=== PATIENT | male | born 1950 | race Caucasian/White ===

== ENCOUNTER 2016-05-08 15:58 | Inpatient (IN) | payer MEDICARE, BC ==
[~2016-05-08] VITALS: Ht 180.3 cm; Wt 85.5 kg
[2016-06-28] VITALS (10 sets, daily range): BP systolic 119–143; BP diastolic 57–78; PULSE 64–641; TEMP 97.1–98.3
[2016-06-28] MEDS ORDERED: VITAMIN C500 MG PO (10:44)
[2016-06-28] MEDS ORDERED: FOLIC ACID 40400 MCG PO (10:44)
[2016-06-28] MEDS ORDERED: FERROUS SU325 MG/TAB PO (10:45)
[2016-06-28] MEDS ORDERED: MOBIC15 MG PO (10:45)
[2016-06-29 00:07] VITALS: BP 128/62; PULSE 83; TEMP 98.2
[2016-06-29 05:03] VITALS: BP 122/79; PULSE 83; TEMP 97.8
[2016-06-29] MEDS ORDERED: ASPI325T6 PO (06:10)
[2016-06-29] MEDS ORDERED: NORCO 325 MG-7.1 TAB PO (06:10)
[2016-06-29 06:15] LABS: HEMOGLOBIN 12.3 g/dl (13.5-18.0)
[2016-06-29 06:17] LABS: HEMATOCRIT 34.6 % (42.0-52.0)
[2016-06-29 08:39] VITALS: BP 129/57; PULSE 92; TEMP 97.5
[2016-06-29 12:50] VITALS: BP 141/60; PULSE 75; TEMP 97.8
== END 2016-06-29 16:02 | disposition home or self-care (01) | DRG 470 ==
LOC: JCC 06-28 07:30
PROVIDERS: Orthopaedic Surgery
PROC: 0SRF0JZ Replacement of Right Ankle Joint with Synthetic Substitute, Open Approach (ICD-10-PCS; principal; 2016-06-28 13:00)
DX: M19.071 Primary osteoarthritis, right ankle and foot (principal)
CPT/HCPCS: A9284; C1713; C1776; J0690; J1885; J2250; J2704; J2795; J3010; J7120